=== PATIENT | female | born 2000 | race Hispanic/Latino ===

== ENCOUNTER 2018-07-17 14:20 | Day surgery (SDC) | payer OTHER ==
[~2018-07-17 14:20] MED LIST: Dexamethasone 20 MG/5 ML VIAL ONE; Glycopyrrolate 0.2 MG/ML 5 ML SYRINGE ONE; Ketorolac Tromethamine 30 MG/ML VIAL ONE; Lidocaine 1% PF 5 ML VIAL ONE; Ondansetron PF 4 MG/2 ML Vial ONE; PHENYLEPHRINE-NS 100 MCG/ML 10 ML SYRINGE ONE; PROPOFOL 200 MG/20 ML VIAL ONE; Rocuronium Bromide 10 MG/ML (10ML VIAL) ONE; Succinylcholine Chloride 20 MG/ML 10 ml SYRINGE FS ONE
[2018-07-17] MEDS ORDERED: Ketorolac Tromethamine 30 MG/ML VIAL ONE (15:27)
[2018-07-17] MEDS ORDERED: diphenhydrAMINE 25 MG CAP ONE (15:28)
[2018-07-17] MEDS ORDERED: Scopolamine 1.5 mg/72 hour Patch ONE (15:28)
[2018-07-17] MEDS ORDERED: Bupivacaine/Epinephrine 0.25% 30 ML VIAL ONE (16:27)
[2018-07-17] MEDS ORDERED: Fentanyl 100 MCG/2 ML VIAL ONE ×2 (16:51→18:09)
[2018-07-17] MEDS ORDERED: Promethazine HCl 25 MG/ML VIAL ONE (16:52)
[2018-07-17] MEDS ORDERED: HYDROmorphone 2 MG/ML VIAL ONE (16:52)
--- NOTE | 2018-07-17 18:50 | HP ---
CHIEF COMPLAINT: Right lower quadrant pain. HISTORY OF PRESENT ILLNESS: This is a 18-year-old female with history of diffuse abdominal discomfort associated with nausea yesterday, became more localized to the right lower quadrant today. The pain is described as 8/10 and sharp, does not radiate. Lying still makes it better. Not associated with fever, chills, nausea, or vomiting today. No change in bowels. No history of chronic inflammatory bowel disease or chronic abdominal pain. PAST MEDICAL HISTORY: She denies. PAST SURGICAL HISTORY: She denies. MEDICATIONS TAKEN DAILY: control. ALLERGIES: NO KNOWN DRUG ALLERGIES. SOCIAL HISTORY: No smoking, alcohol, or other drugs. REVIEW OF SYSTEMS: Ten-system review of systems otherwise negative unless described above. PHYSICAL EXAMINATION: HEENT: Sclerae are anicteric. Oropharynx, clear. NECK: No lymphadenopathy. CHEST: Clear. HEART: Regular rate and rhythm. ABDOMEN: Soft, tender in the right lower quadrant with localized guarding, no rebound. No abdominal or inguinal hernias. EXTREMITIES: No ischemia or edema to extremities. DIAGNOSTIC STUDIES: CT scan shows acute appendicitis. ASSESSMENT: Acute appendicitis. PLAN: Laparoscopic appendectomy. Risks, benefits, and alternatives were discussed. She gives consent. We will do this today. Job ID: [id number]
--- NOTE | 2018-07-17 19:22 | OP ---
DATE OF PROCEDURE: 07/17/2018 PREOPERATIVE DIAGNOSIS: Acute appendicitis. POSTOPERATIVE DIAGNOSIS: Acute appendicitis. PROCEDURE PERFORMED: Laparoscopic appendectomy. ANESTHESIA: General. ESTIMATED BLOOD LOSS: Minimal. COMPLICATIONS: None. SPECIMEN: Appendix. FINDINGS: Appendicitis. DESCRIPTION OF PROCEDURE: The patient was taken to the operating room and laid supine on the operating room table. After general anesthetic was obtained, a Pyle was placed. The abdomen was shaved, prepped, and draped in a sterile fashion. A curved incision was made below the umbilicus. Cautery was used to dissect down to and score the fascia. Abdominal cavity was entered bluntly using a Ce clamp. Holding stitch was placed on each side of the fascia. Chyna trocar was placed. High-flow pneumoperitoneum was obtained. A suprapubic femoral port and left lower quadrant femoral port were placed under direct visualization. The cecum was rolled over to reveal acute appendicitis. There was no perforation. A window was made at the base of the appendix and mesoappendix. A laparoscopic stapler was fired across the base of the appendix. A vascular reload was fired across the mesoappendix. The appendix was placed in EndoCatch bag and brought out through the Chyna. There was no bleeding in the abdomen. There was no injury to any intraabdominal structures. The right lower quadrant and pelvis were irrigated using sterile solution. There was no ongoing bleeding. All port sites were infiltrated using local anesthetic. All ports were removed under camera visualization. Pneumoperitoneum was let down. PDS was used to close the fascial defect below the umbilicus. All incisions were irrigated and closed using 4-0 Monocryl and Dermabond. The patient was sent to Recovery in stable condition. All instrument counts, needle counts, and lap counts were correct. Job ID: [id number]
== END 2018-07-17 19:49 | disposition home or self-care (01) ==
LOC: SDC 14:20
PROC: 0DTJ4ZZ Resection of Appendix, Percutaneous Endoscopic Approach (ICD-10-PCS; principal; 2018-07-17)
DX: K35.80 Unspecified acute appendicitis (principal); Z79.3 Long term (current) use of hormonal contraceptives
CPT/HCPCS: 88304; J0131; J1100; J1170; J1885; J2001; J2405; J2550; J2704; J3010; Q0163